=== PATIENT | female | born 1980 | race Caucasian/White ===

== ENCOUNTER 2018-09-13 16:07 | Inpatient (IN) | payer SELFPAY ==
[2018-09-13 17:52] LABS: #Eosinphils 0.2 thou/uL (0.0-0.7); #Lymphocytes 1.7 thou/uL (1.20-3.40); #Monocytes 0.9 thou/uL (0.11-0.59); #Neutrophils 8.9 thou/uL (1.40-6.50); %Basophils 0.3 % (0.0-1.0); %Eosinophils 1.5 % (0.0-10.0); %Lymphocytes 14.5 % (21.0-51.0); %Monocytes 7.6 % (0.0-10.0); %Neutrophils 76.1 % (42.0-75.0); Hemoglobin 12.5 g/dL (12.0-16.0); Mean Corpuscular HGB CONC 32.6 g/dL (32.0-36.0); Mean Corpuscular Hemoglobin 29.1 pg (27.0-31.0); Mean Corpuscular Volume 89.3 fL (78.0-98.0); Mean Platelet Volume 7.6 fL (7.4-10.4); Platelet Count 269 thou/uL (130-400); RBC Distribution Width 13.5 % (11.5-14.5); Red Blood Cell (RBC) Count 4.28 mill/uL (4.20-5.40); White Blood Cell (WBC) Count 11.8 thou/uL (4.8-10.8)
[2018-09-13 18:21] LABS: ALT (SGPT) 18 U/L (8-55); AST (SGOT) 20 U/L (5-34); Albumin 4.3 g/dL (3.5-5.0); Alkaline Phosphatase 73 U/L (40-150); Anion Gap 11 mmol/L (10-20); BUN (Urea Nitrogen) 9 mg/dL (7.0-18.7); Bilirubin, Total 0.7 mg/dL (0.2-1.2); Calc. Creatinine Clearance 0 mL/min (70-130); Carbon Dioxide 26 mmol/L (22-29); Chloride 105 mmol/L (98-107); Estimated GFR-MDRD 88; Globulin 2.7 g/dL (2.4-3.5); Glucose 90 mg/dL (70-105); Lipase 9 U/L (8-78); Potassium 3.8 mmol/L (3.5-5.1); Sodium 138 mmol/L (136-145)
--- NOTE | 2018-09-13 19:16 | ULT ---
GALLBLADDER ULTRASOUND: 09/13/18 HISTORY: 37-year-old female with right upper quadrant pain. FINDINGS: Multiple shadowing mobile gallstones are seen without gallbladder wall thickening or pericholecystic fluid. The liver, right kidney and visualized portions of the pancreas are normal. The common duct me asures 6 mm in diameter. The gallbladder is distended measuring about 10 cm in length. No free fluid is seen in Plasencia's pouch. IMPRESSION: Dilated gallbladder with cholelithiasis. POS: CLARITAH
[2018-09-13] MEDS ORDERED: Morphine 4 MG/ML VIAL ONE (19:45)
[2018-09-13] MEDS ORDERED: Ondansetron PF 4 MG/2 ML Vial ONE (19:49)
[2018-09-13 20:41] LABS: BHCG - Serum Negative (NEGATIVE); Pregs Control Background? CLEAR/WHITE (CLR/WHITE); Pregs Control Bar Appear? YES (CONTROL BAR)
[2018-09-13 21:33] VITALS: BMI 33.5
[2018-09-13] MEDS ORDERED: Morphine 2 MG/ML SYRINGE SLOW IVP PRN (21:33)
[2018-09-13] MEDS ORDERED: Ondansetron PF 4 MG/2 ML Vial IVP PRN ×2 (21:33→22:09)
[2018-09-13] MEDS ORDERED: Sodium Chloride 0.9% 1,000 ML IV SCH (21:45)
[2018-09-13] MEDS ORDERED: hydrALAZINE 20 MG/ML VIAL SLOW IVP PRN (22:09)
[2018-09-13] MEDS ORDERED: Ondansetron ODT 4 MG TAB PO PRN (22:09)
[2018-09-13] MEDS ORDERED: Morphine 4 MG/ML VIAL SLOW IVP PRN ×2 (22:09)
[2018-09-13] MEDS ORDERED: Scopolamine 1.5 mg/72 hour Patch TD SCH (22:15)
[2018-09-13] MEDS ORDERED: Acetaminophen 1,000 MG in Premix Bag 1 BAG IVPB SCH (22:15)
[2018-09-13] MEDS ORDERED: Ketorolac Tromethamine 30 MG/ML VIAL IVP SCH (22:15)
[2018-09-13 22:42] LABS: Troponin I Less than 0.010 ng/mL (< 0.028)
[2018-09-13] MEDS: Acetaminophen 1,000 MG in Premix Bag 1 BAG IVPB SCH (23:06)
[2018-09-13] MEDS: Ketorolac Tromethamine 30 MG/ML VIAL IVP SCH (23:14)
[2018-09-13] MEDS: Lactated Ringer's 1,000 ML IV SCH (23:14)
--- NOTE | 2018-09-14 03:40 | HP ---
HISTORY OF PRESENT ILLNESS: Soumya Alexandra is a 37-year-old female, who has had epigastric right upper quadrant pain, episodic for several years, but on this episode it would not resolve and she presented to the emergency room. In the emergency room, she had an abdominal ultrasound revealing gallstones, dilated gallbladder, bile duct 6 mm. White count 11 and hemoglobin 12. Liver function tests are normal. Serum test is negative. ALLERGIES: NONE. HABITS: Tobacco, none since February 2018. Alcohol, none. MEDICATIONS: None routinely. PAST SURGICAL HISTORY: and tubal ligation. PAST MEDICAL HISTORY: Noncontributory. SOCIAL HISTORY: The patient is a full-time mother, and has children. She lives in [place]. PHYSICAL EXAMINATION: VITAL SIGNS: Weight 88 kg. Blood pressure 124/80, pulse 67, respirations 18, temperature 98.3 degrees. LUNGS: Clear to auscultation. CARDIAC: Regular rate and rhythm without murmur or gallop. ABDOMEN: Soft. Tenderness in the right upper quadrant with guarding and rebound. EXTREMITIES: Unremarkable. No ankle edema. Palpable pedal pulses. HEENT: Sclerae nonicteric. SKIN: Nonjaundiced. NECK: No lymphadenopathy in neck, axilla, or groins. NEUROLOGIC: Intact. No deficit. ASSESSMENT AND PLAN: Acute cholecystitis, cholelithiasis. Will hospitalize tonight. IV antibiotics, n.p.o. Plan laparoscopic video cholecystectomy tomorrow. Risks of infection, bleeding, visceral or biliary injury, open procedure were discussed and she consents. Questions answered. Job ID: [id number]
[2018-09-14] MEDS: Acetaminophen 1,000 MG in Premix Bag 1 BAG IVPB SCH ×2 (06:19→17:36)
[2018-09-14] MEDS: Ketorolac Tromethamine 30 MG/ML VIAL IVP SCH ×2 (06:19→17:37)
[2018-09-14] MEDS: Lactated Ringer's 1,000 ML IV SCH ×2 (09:35→17:37)
[2018-09-14] MEDS ORDERED: Midazolam HCl 2 mg/2 ml Vial ONE (12:49)
[2018-09-14] MEDS ORDERED: Bupivacaine/Epinephrine 0.25% 30 ML VIAL ONE (13:57)
[2018-09-14] MEDS ORDERED: Fentanyl 100 MCG/2 ML VIAL ONE ×2 (14:03→15:35)
[2018-09-14] MEDS ORDERED: Meperidine HCl/PF 25 MG/ML VIAL SLOW IVP PRN (14:51)
[2018-09-14] MEDS ORDERED: Morphine Sulfate 2 MG/ML SYRINGE SLOW IVP PRN (14:51)
[2018-09-14] MEDS ORDERED: HYDROmorphone 2 MG/ML VIAL SLOW IVP PRN (14:51)
[2018-09-14] MEDS ORDERED: PACU-Morphine 4MG/ML VIAL SLOW IVP PRN (14:51)
[2018-09-14] MEDS ORDERED: Ondansetron HCl/PF 4 MG/2 ML Vial IVP PRN (14:51)
[2018-09-14] MEDS ORDERED: Promethazine HCl 25 MG/ML VIAL SLOW IVP PRN (14:51)
[2018-09-14] MEDS ORDERED: Promethazine HCl 25 MG/ML VIAL IM PRN (14:51)
[2018-09-14] MEDS ORDERED: Ibuprofen 600 MG TAB PO PRN (15:21)
[2018-09-14] MEDS ORDERED: Acetaminophen 500 MG TAB PO PRN (15:21)
[2018-09-14] MEDS ORDERED: traMADol HCl 50 MG TAB PO PRN ×2 (15:21)
--- NOTE | 2018-09-14 15:49 | OP ---
DATE OF PROCEDURE: 09/14/2018 PREOPERATIVE DIAGNOSES: Acute cholecystitis, chronic cholecystitis and cholelithiasis. POSTOPERATIVE DIAGNOSES: Acute cholecystitis, chronic cholecystitis and cholelithiasis. PROCEDURE PERFORMED: Laparoscopic video cholecystectomy. ANESTHESIA: General, local 0.5% Marcaine with epinephrine 30 mL, total volume used. DESCRIPTION OF PROCEDURE: The patient was taken to the operating room, where under general anesthesia, abdomen was prepared with ChloraPrep and draped in routine fashion. Local anesthetic was infiltrated in the skin and subcutaneous tissue about each port site. An infraumbilical incision was made. Pneumoperitoneum to 15 mmHg was obtained with a Veress needle, replacing with a 5 port, video laparoscope inserted. Right subxiphoid incision was made and 11 mm port placed. Right subcostal incision was made, midclavicular and anterior axillary lines, a 5 port was placed. Liver appeared to be normal. Gallbladder was acutely inflamed, thickened wall edematous, fundus grasped at the cephalad. Infundibulum was grasped at the lateral. Cystic artery and duct dissected free. Critical view obtained. Cystic artery and duct double clipped proximally and divided, gallbladder dissected free from liver bed obtaining good hemostasis prior to division of the final peritoneal attachments. Gallbladder and contents were removed and submitted to Pathology. Large stone was removed. Good hemostasis ensured with the cautery. Irrigant and pneumoperitoneum were evacuated. All instruments were removed and all skin incisions were approximated with interrupted subdermal 4-0 Monocryl and [place] glue applied. The patient tolerated the procedure well. Job ID: [id number]
[2018-09-14] MEDS ORDERED: PROPOFOL 200 MG/20 ML VIAL ONE (17:11)
[2018-09-14] MEDS ORDERED: Ondansetron PF 4 MG/2 ML Vial ONE (17:11)
[2018-09-14] MEDS ORDERED: PHENYLEPHRINE-NS 100 MCG/ML 10 ML SYRINGE ONE (17:11)
[2018-09-14] MEDS ORDERED: Glycopyrrolate 0.2 MG/ML 5 ML SYRINGE ONE (17:11)
[2018-09-14] MEDS ORDERED: Lidocaine 1% PF 5 ML VIAL ONE (17:11)
[2018-09-14] MEDS ORDERED: Ketorolac Tromethamine 30 MG/ML VIAL ONE (17:11)
[2018-09-14] MEDS ORDERED: Rocuronium Bromide 10 MG/ML (10ML VIAL) ONE (17:11)
[2018-09-14] MEDS ORDERED: Dexamethasone 20 MG/5 ML VIAL ONE (17:11)
[2018-09-14 17:35] VITALS: TEMP 97.8
[2018-09-14 19:18] VITALS: BP 108/74
[2018-09-14] MEDS ORDERED: Enoxaparin Sodium 40 MG/0.4 ML SYRINGE SC SCH (21:00)
--- NOTE | 2018-09-15 02:16 | DIS ---
DATE OF ADMISSION: 09/13/2018 DATE OF DISCHARGE: 09/14/2018 DISCHARGE DIAGNOSIS: Acute chronic cholecystitis and cholelithiasis. PROCEDURES PERFORMED: Ultrasound of the gallbladder in the emergency room admission overnight for IV fluid and antibiotics. Laparoscopic video cholecystectomy 09/14/2018, discharged home afterwards. DISCHARGE MEDICATIONS: 1. [id number] Tylenol. 2. Motrin for pain. 3. Ultram if needed for pain. DISCHARGE INSTRUCTIONS: Diet and activity as tolerated. No lifting restrictions. Follow up in my office in 2 to 3 weeks. HISTORY: A 37-year-old female with symptomatic cholelithiasis, presents to the emergency room with intractable pain. Admitted and underwent laparoscopic cholecystectomy after receiving intravenous fluids and antibiotics overnight. Discharged home postoperatively. Diet and activity as tolerated. Job ID: [id number]
== END 2018-09-14 19:17 | disposition home or self-care (01) | DRG 419 ==
LOC: ERS 16:07 → SURG A 19:41 → OBSVTOIN 19:41
PROVIDERS: ADMIT Specialist; ATTEND Specialist
PROC: 0FT44ZZ Resection of Gallbladder, Percutaneous Endoscopic Approach (ICD-10-PCS; principal; 2018-09-14)
DX: K80.12 Calculus of gallbladder with acute and chronic cholecystitis without obstruction (principal); Z87.891 Personal history of nicotine dependence; Z98.51 Tubal ligation status
CPT/HCPCS: 36415; 76705; 83690; 84484; 84703; 88304; 94760; 96374; 96375; J0131; J1100; J1885; J1956; J2001; J2250; J2270; J2405; J2704; J3010